=== PATIENT | female | born 1950 | race Caucasian/White ===

== ENCOUNTER → 2025-04-05 10:23 | Outpatient (BNVA) | payer MEDICARE, OTHER, SELFPAY | PROVIDERS: PCP Specialist/Technologist Athletic Trainer; Referring Provider Specialist/Technologist Athletic Trainer; Visit Provider Nurse Practitioner Adult Health | DX: R44.0 Auditory hallucinations (principal); R41.3 Other amnesia; I10 Essential (primary) hypertension | CPT/HCPCS: 99205 ==

== ENCOUNTER 2025-05-08 10:59 | Outpatient (CLI) | payer MEDICARE, SELFPAY ==
--- NOTE | 2025-05-08 06:30 | DI.MRI_ITS ---
Exam(s) MR BRAIN WO EXAM: MR BRAIN WO CLINICAL HISTORY: memory changes, auditory hallucinations,r41.3,r44.0 TECHNIQUE: Multiplanar multisequence MRI of the brain was performed. COMPARISON: No exams were available for comparison FINDINGS: VENTRICLES AND EXTRA AXIAL SPACES: Normal in size and morphology for the patient's age. MIDLINE SHIFT: None. CEREBRAL PARENCHYMA: No focus of restricted diffusion to suggest acute infarct. No space-occupying lesion identified. Moderate atrophy. Mild scattered foci of high signal in the white matter consistent with sequela of chronic microvascular disease. BRAINSTEM/CEREBELLUM: Normal. VISUALIZED PARANASAL SINUSES: Clear. MASTOIDS:Some fluid in the mastoid air cells, left greater than right. Vasculature: Normal flow void. PITUITARY GLAND: Not enlarged. Partially empty sella. ORBITS: Unremarkable. IMPRESSION: Moderate atrophy. Mild white matter changes consistent with chronic microvascular disease. DATA REPOSITORY:
== END 2025-05-08 11:19 ==
PROVIDERS: PCP Specialist/Technologist Athletic Trainer; Visit Provider Nurse Practitioner Adult Health
DX: R44.0 Auditory hallucinations (principal); R41.3 Other amnesia
CPT/HCPCS: 70551